=== PATIENT | female | born 1985 | race Caucasian/White ===

== ENCOUNTER 2019-07-10 21:28 | Emergency (ER) | payer OTHER ==
[~2019-07-10] VITALS: Ht 152.4 cm; Wt 88.5 kg
[2019-07-10 21:32] VITALS: Ht 152.4 cm; Wt 88.5 kg
[2019-07-11 01:13] VITALS: BP 117/69
== END 2019-07-11 01:13 | disposition home or self-care (01) ==
LOC: ED 21:28
DX: R07.89 Other chest pain (principal); R20.2 Paresthesia of skin